=== PATIENT | male | born 1965 | race Caucasian/White ===

== ENCOUNTER 2019-02-09 06:18 | Day surgery (SDC) | payer MEDICAID ==
[~2019-02-09] VITALS: Ht 170.2 cm; Wt 102.3 kg
[~2019-02-09 06:18] MED LIST: SODIUM CHLORIDE 0.9% 1,000 ML IV ONE
[2019-02-09] MEDS ORDERED: BENZOCAINE 20% 50 MCG/SPRAY 57 GM TP ONE (06:19)
[2019-02-09] MEDS ORDERED: LIDOCAINE 4% 50 ML SOLUTION TP ONE (06:19)
[2019-02-09] MEDS ORDERED: ALBUTEROL SULFATE 2.5 MG/0.5 ML NEB SOLUTION NEB ONE (06:19)
[2019-02-09] MEDS ORDERED: LIDOCAINE 2% 5 ML JELLY TP ONE (06:19)
[2019-02-09] MEDS: SODIUM CHLORIDE 0.9% 1,000 ML IV ONE (06:53)
[2019-02-09] MEDS ORDERED: AMLO5TAB9 PO (07:07)
[2019-02-09] MEDS ORDERED: MONT10TA21 PO (07:07)
[2019-02-09] MEDS ORDERED: IPRA4AER IH (07:07)
[2019-02-09] MEDS ORDERED: FentaNYL CITRATE-PF 100 MCG/2 ML VIAL ONE (07:45)
[2019-02-09] MEDS ORDERED: MIDAZOLAM HCL 2 MG/2 ML VIAL ONE (07:45)
[2019-02-09] MEDS ORDERED: MethylPREDNISolone SOD SUCC 125 MG/2 ML VIAL ONE (08:38)
[2019-02-09] MEDS: MethylPREDNISolone SOD SUCC 125 MG/2 ML VIAL IVP ONE (08:43)
[2019-02-09] MEDS ORDERED: OXYGEN THERAPY IH SCH (20:00)
== END 2019-02-09 09:45 | disposition home or self-care (01) ==
LOC: SURGERY 06:18
PROVIDERS: ATTEND Internal Medicine Critical Care Medicine
DX: J38.4 Edema of larynx (principal); B37.0 Candidal stomatitis; J98.8 Other specified respiratory disorders; J44.9 Chronic obstructive pulmonary disease, unspecified; I10 Essential (primary) hypertension; Z87.891 Personal history of nicotine dependence; Z72.89 Other problems related to lifestyle; Z79.899 Other long term (current) drug therapy; Z98.890 Other specified postprocedural states
CPT/HCPCS: 31623; 31624; 71045; 87015; 87070; 87101; 87205; 87206; 87220; 88108; 88312; J2250; J2930; J3010; J7030